=== PATIENT | female | born 1965 | race Caucasian/White ===

== ENCOUNTER 2017-10-23 07:07 | Day surgery (SDC) | payer OTHER ==
[~2017-10-23 07:07] MED LIST: HUMIRA40 MG/0.8 MR; IBUPROFEN200 M1 PO; LEXAPRO 10 MG T10 MG PO; LISINOPRIL 20MG20 MG PO; VIVELLE-DO0.025 MG/2 TD
--- NOTE | 2017-10-23 08:30 | Operative Note ---
Endoscopy Report Date: 10/23/17 Preoperative diagnosis: Screening Procedure Type of procedure: Total Colonoscopy with Polypectomy Indications: Patient is a 52-year-old white female, [employer] employee, referred for colonoscopy. Her primary care physician is Dr. Wharton. However, patient states that her value engineer, Dr. Aimee Bermeo, has requested she undergo colonoscopy. She's been asymptomatic. Patient actually states that she's had a couple of colonoscopies in the past interestingly. She states that these were for "screening". Last colonoscopy was about 9 or 10 years ago. She has no family history of colon cancer but states that her father had polyps. Plan was made to proceed with colonoscopy. Patient was taken to endoscopy procedure room and positioned in lateral decubitus position. Anesthesia was achieved with titration of 11mg Versed and 200mcg Fentanyl for the duration of the procedure. Colonoscope was advanced to the cecum with minor difficulty. Appendicieal orifice and ileocecal valve were identified. There was a subtle possible periappendiceal polyp removed with cold biopsy forceps. In the ascending colon there was another possible subtle polyp removed with cold biopsy forceps. There were rare diverticuli noted. Retroflexion in the rectum revealed no pathologic internal hemorrhoids. Findings 1. Polyp 2. Diverticulosis Follow-Up Follow-Up: Likely plan for repeat colonoscopy in 5 years. at 0830
--- NOTE | 2017-10-23 08:30 | Operative Note ---
Endoscopy Report Date: 10/23/17 Preoperative diagnosis: Screening Procedure Type of procedure: Total Colonoscopy with Polypectomy Indications: Patient is a 52-year-old white female, [employer] employee, referred for colonoscopy. Her primary care physician is Dr. Wharton. However, patient states that her dressmaker or tailor, Dr. Aimee Bermeo, has requested she undergo colonoscopy. She's been asymptomatic. Patient actually states that she's had a couple of colonoscopies in the past interestingly. She states that these were for "screening". Last colonoscopy was about 9 or 10 years ago. She has no family history of colon cancer but states that her father had polyps. Plan was made to proceed with colonoscopy. Patient was taken to endoscopy procedure room and positioned in lateral decubitus position. Anesthesia was achieved with titration of 11mg Versed and 200mcg Fentanyl for the duration of the procedure. Colonoscope was advanced to the cecum with minor difficulty. Appendicieal orifice and ileocecal valve were identified. There was a subtle possible periappendiceal polyp removed with cold biopsy forceps. In the ascending colon there was another possible subtle polyp removed with cold biopsy forceps. There were rare diverticuli noted. Retroflexion in the rectum revealed no pathologic internal hemorrhoids. Findings 1. Polyp 2. Diverticulosis Follow-Up Follow-Up: Likely plan for repeat colonoscopy in 5 years. at 0830
[2017-10-23 09:11] VITALS: BP 118/77
== END 2017-10-23 08:50 | disposition home or self-care (01) ==
LOC: SDC 07:07
PROVIDERS: Surgery
PROC: 0DBC8ZX Excision of Ileocecal Valve, Via Natural or Artificial Opening Endoscopic, Diagnostic (ICD-10-PCS; principal; 2017-10-23 07:30)
DX: Z12.11 Encounter for screening for malignant neoplasm of colon (principal); K63.5 Polyp of colon; K57.90 Diverticulosis of intestine, part unspecified, without perforation or abscess without bleeding